=== PATIENT | male | born 1940 | race Caucasian/White ===

== ENCOUNTER 2017-07-12 08:00 | Day surgery (SDC) | payer MEDICARE, BC ==
[~2017-07-12 08:00] MED LIST: RINGER'S SOLUTION,LACTATED 1,000 ML IV PRN
[2017-07-12] MEDS ORDERED: RINGER'S SOLUTION,LACTATED 1,000 ML IV ONE (08:29)
[2017-07-12] MEDS ORDERED: RINGER'S SOLUTION,LACTATED 1,000 ML IV PRN (10:16)
[2017-07-12 11:06] VITALS: BP 119/74
--- NOTE | 2017-07-12 18:22 | OR ---
Operative Report - Dictated Report Narrative: OPERATIVE REPORT DATE OF OPERATION: 07/12/2017 PREOPERATIVE DIAGNOSIS: No prior colon studies POSTOPERATIVE DIAGNOSIS: Severe diverticulosis. 0.7 cm polyp at 30 cm with additional 3 mm areas of polypoid change at 40 cm and 140 cm OPERATION: Colonoscopy with snare polypectomy at 30 cm and hot biopsy forceps polypectomy at 140 cm and 40 cm SURGEON: Marie Peters MD ANESTHESIA: MAC Andrew Chatman CRNA INDICATIONS FOR PROCEDURE: The patient is a 77-year-old male referred by Dr. De La O. The patient has had no previous dedicated: Studies. There is no family history of colon cancer. He is currently asymptomatic. FINDINGS: Severe sigmoid diverticulosis. 0.7 cm polyp at 30 cm. Additional 3 mm areas of polypoid change at 40 cm and 140 cm NARRATIVE OF PROCEDURE: The patient was identified in the holding area, and prior to the administration of anesthetic, a multidisciplinary timeout was observed. With the patient in the left lateral position and after the administration of intravenous sedation, the perineum was inspected. There was no evidence of pilonidal disease or skin breakdown. The external appearance of the anus was normal. Sphincter tone was good. The flexible fiberoptic colonoscope was inserted into the rectum which was insufflated with air. The rectal mucosa and submucosal vascular pattern appeared normal, the prep was seen to be complete. The scope was advanced through the sigmoid colon, which was tortuous and contained innumerable large diverticular openings. There was no inflammation but several diverticula were impacted with stool. A large polyp was encountered at 30 cm. This was bypassed. The scope was advanced up the descending colon, and around the splenic flexure where the triangular haustral architecture of the transverse colon was seen. The scope was advanced across the transverse colon, around the hepatic flexure to the cecum, where the confluence of tenia and the ileocecal valve were identified. The mucosa at this level appeared normal. The scope was then slowly withdrawn in a circular fashion so that all aspects of colonic mucosa were inspected. The colon was capacious and character and the sigmoid colon was tortuous. The haustral architecture appeared well preserved throughout with no evidence of external compression. The mucosa and submucosal vascular pattern appeared normal, specifically there was no gross evidence to suggest colitis or inflammatory bowel disease and no AV malformations were seen. The diverticulosis was severe in degree, graff colonic in distribution but most concentrated in the sigmoid. 3 mm areas of possible polypoid change were encountered at 40 cm and 140cm. the area of 140 cm was biopsied with hot biopsy forceps and then thoroughly destroyed with electrocautery. The site was seen to be completely hemostatic. The lesion at 40 cm was tangentially destroyed with electrocautery. The site appeared complete and hemostatic. The scope was gradually withdrawn to the level of the large polyp at 30 cm which was amputated with cautery snare. The base of excision appeared complete and hemostatic. The polyp was then grasped and retrieved and submitted to pathology. As much insufflated air as possible was removed. The scope was withdrawn from the patient and the procedure terminated. The patient tolerated the anesthetic and procedure well without complication and was transferred back to the ambulatory surgery area awake and in stable condition. The patient remained stable throughout a period of postoperative observation. He denied abdominal discomfort, was able to tolerate by mouth intake, and was up without assistance. I shared the operative findings with the patient and he was given copies of the photographs which appear in the medical record. He was discharged home with instructions not to engage in hazardous activity today, but may resume normal activity tomorrow, and advance diet as tolerated. He is to continue those medications as listed in the history and physical exam. I made arrangements to contact him with the biopsy reports and will make additional recommendations for treatment and follow-up based upon those results. Reviewed and electronically signed
== END 2017-07-12 08:01 | disposition home or self-care (01) ==
LOC: AMB 08:00
PROVIDERS: ATTEND Surgery
PROC: 0DBK8ZX Excision of Ascending Colon, Via Natural or Artificial Opening Endoscopic, Diagnostic (ICD-10-PCS; principal; 2017-07-12)
PROC: 0DBN8ZX Excision of Sigmoid Colon, Via Natural or Artificial Opening Endoscopic, Diagnostic (ICD-10-PCS; 2017-07-12)
DX: Z87.891 Personal history of nicotine dependence; K57.30 Diverticulosis of large intestine without perforation or abscess without bleeding; Z68.29 Body mass index [BMI] 29.0-29.9, adult; D12.5 Benign neoplasm of sigmoid colon; Z12.11 Encounter for screening for malignant neoplasm of colon; K63.5 Polyp of colon